=== PATIENT | female | born 1975 | race Caucasian/White ===

== ENCOUNTER → 2018-10-10 | Day surgery (SDC) | payer OTHER ==
[~2018-10-10] MED LIST: ACETAMINOPHEN 1000 MG/100 ML 100 ML IV ONE; ARMOUR THYROID30 MG PO; CLARITIN PO; CRESTOR5 MG PO; DEXAMETHASONE SOD PHOS INJ 4 MG/ML VIAL ONE; DEXILANT60 MG PO; EPHEDRINE SULFATE INJ 50 MG/10 ML SYR ONE; EPINEPHRINE HCL INJ 1 MG/ML AMP ONE; FENTANYL CITRATE/PF 100MCG/2 ML INJ ONE; FISH OIL PO; IRON PO; LAMOTRIGINE200 MG PO; LEVOTHYROXINE50 MCG PO; LIDOCAINE 1% W/EPINEPHRINE 20 ML VIAL ONE; LIDOCAINE HCL 2% LOCAL INJ 5 ML SDV VIAL INJ ONE; MIDAZOLAM HCL 2 MG/2 ML VIAL ONE; MULTIVITAMINS1 EAC8 PO; ONDANSETRON HCL INJ 2 MG/ML VIAL ONE; PROPOFOL IV EMULSION 10 MG/ML 20 ML VIAL ONE; ROCURONIUM BROMIDE 10 MG/ML 5ML VIAL ONE; SEVOFLURANE INHAL SOLN 250 ML PEN BTL ONE; SINGULAIR10 MG PO; VITAMIN B-12 SL; VITAMIN C PO; VITAMIN D PO; ZYRTEC10 MG PO
--- OUTSIDE RECORDS SUMMARY | 2018-10-10 08:18 | XMS REPORT | Clinical Summary ---
Author Author [employer] [facility] [employer] Address Unknown Phone Unavailable Care Team Providers Care Program Proposals Coordinator Name Role Phone Tawanda Paulson MD PCP Allergies Comments Active Allergy Reactions Severity Noted Date Penicillins Anaphylaxis High 01/10/2018 Sulfa (Sulfonamide Anaphylaxis High 01/10/2018 Antibiotics) Medications End Date Status Medication Sig Dispensed Refills Start Date Active thyroid, pork, (ARMOUR 0 THYROID) 30 mg tablet Active loratadine (CLARITIN) 10 0 mg tablet Active rosuvastatin (CRESTOR) 5 0 MG tablet Active cyanocobalamin, vitamin 0 B-12, 1,000 mcg tablet, sublingual Active dexlansoprazole 0 (DEXILANT) 60 mg capsule Active PNV 69-iron 0 [id number] 28-1-50-250 mg capsule Active lamoTRIgine (LaMICtal) 0 200 MG tablet Active linaclotide (LINZESS) 72 0 mcg capsule Active MULTIVITAMIN-FERROUS 0 SULFATE ORAL Active TRIAMCINOLONE ACETONIDE 0 (NASACORT NASL) Active montelukast (SINGULAIR) 0 10 mg tablet Active levothyroxine (SYNTHROID, 0 LEVOXYL) 50 mcg tablet Active ascorbic acid, vitamin C, 0 (vitamin C) 100 MG tablet Active cholecalciferol, vitamin 0 D3, (VITAMIN D3) 5,000 unit tablet Active cetirizine (ZyrTEC) 10 MG 0 tablet 02/09/2018 methocarbamol (ROBAXIN) Take 1 tablet 60 tablet 0 500 MG tabletIndications: (500 mg 8 Chronic bilateral low total) by back pain, with sciatica mouth 2 (two) presence unspecified, times a day Degeneration of lumbar for 30 days. intervertebral disc, Chronic right shoulder pain Active Problems No known active problems Encounters Care Team Description Date Type Specialty Ole Lara MD Neck pain (Primary Dx); DDD (degenerative disc disease), cervical; Strain of neck muscle, initial encounter 03/10/2018 Office Visit Orthopedic Surgery Ole Lara MD Chronic bilateral low back pain, with sciatica presence unspecified (Primary Dx); Degeneration of lumbar intervertebral disc; Chronic right shoulder pain 01/10/2018 Office Visit Orthopedic Surgery after 10/09/2017 Family History Medical History Relation Name Comments Cancer Father Karl mesothelioma Hank Rheumatologic disease Father Karl Mckinney Diabetes Maternal Aunt Tanya Armendariz My dads sister Cancer Mother Nicole 2 types of breast cancers at the same time Hank Diabetes Mother Nicole several of my moms sisters Hank Osteoporosis Mother Nicole Mckinney Diabetes Sister Zeina Chaidez Rheumatologic disease Sister Emily Ball Relation Name Status Comments Father Karl Mckinney Maternal Aunt Tanya Armendariz Mother Nicole Mckinney Sister Zeina Chaidez Sister Emily Ball Social History Date Tobacco Use Types Packs/Day Years Used Never Smoker Alcohol Use Drinks/Week oz/Week Comments No Sex Assigned at Date Recorded Not on file Industry Job Start Date Occupation Not on file Not on file Not on file Travel End Travel History Travel Start No recent travel history available. Last Filed Vital Signs Time Taken Vital Sign Reading 01/10/2018 2:37 PM [employer] Blood Pressure 125/76 - Pulse - - Temperature - - Respiratory Rate - - Oxygen Saturation - - Inhaled Oxygen - Concentration 01/10/2018 2:37 PM [employer] Weight 83.9 kg (185 lb) 01/10/2018 2:37 PM [employer] Height 157.5 cm (5' 2") 01/10/2018 2:37 PM [employer] Body Mass Index 33.84 Plan of Treatment Health Maintenance Due Date Last Done Comments CERVICAL CANCER SCREENING 1994 INFLUENZA VACCINE 06/28/2018 Procedures Comments Procedure Name Priority Date/Time Associated Diagnosis XR CERVICAL SPINE Routine 03/10/2018 Neck pain COMPLETE 10:22 AM CDT XR LUMBAR SPINE COMPLETE Routine 01/10/2018 Chronic bilateral low 4+ VW 2:48 PM [employer] back pain, with sciatica presence unspecified after 10/09/2017 Results * XR Cervical Spine Complete (03/10/2018 10:22 AM CDT) Narrative Performed At [facility], lateral and oblique x-rays of the cervical spine show marked straightening of the normal cervical curve. She also has significant narrowing and spurring of the facet joints between C5 and C6 and C6 and C7.She has severe degenerative arthritis in her cervical spine and cervical strain. Performing Organization Address City/State/Zipcode Phone Number [facility] [address] [place] [address] * XR Lumbar Spine Complete 4+ Vw (01/10/2018 2:48 PM BUSINESS [employer]) Narrative Performed At [facility], lateral and oblique x-rays lumbar spine shows marked narrowing of L5-S1 associated with facet narrowing of L5-S1. Performing Organization Address [facility]/Zipcode Phone Number [facility] [address] [place] [address] after 10/09/2017 Insurance Payer Benefit Subscriber ID Type Phone Address Plan / Group AETNA AETNA PPO xxxxxxxxxx PPO OPEN CHOICE Advance Directives Patient has advance care planning documents on file. For more information, padma dale contact: Evaristo Hurd [address] [place] [address]
--- NOTE | 2018-10-10 12:01 | Operative Report ---
DATE OF PROCEDURE: October 10, 2018 CHIEF COMPLAINT: Chronic sinusitis, nasal obstruction. POSTOPERATIVE DIAGNOSES: 1. Chronic sinusitis. 2. Nasal obstruction. OPERATIONS PERFORMED: 1. Bilateral anterior and posterior ethmoidectomy. 2. Bilateral maxillary sinus antrostomy. 3. Bilateral resection of tissue in maxillary antrum. 4. Bilateral sphenoidectomy. ANESTHESIA: Anesthesiology group. INDICATIONS: This 43-year-old female has history of nasal obstruction. Patient has postnasal drip discharge from her nose. Patient has been treated with about 6 weeks of antibiotics, topical nasal steroid, decongestant with no improvement. On examination the patient was noted to have hypertrophy of the inferior turbinate. A CT scan of paranasal sinuses done before surgery showed the patient has maxillary sinus involvement with polypoid changes in the maxillary sinus, ethmoid sinus involvement and sphenoid sinus involvement. It was decided that endoscopic sinus surgery and other necessary procedures will be beneficial for her. The patient had previous sinus surgery a few years ago. She was doing well until recently. DETAILS OF PROCEDURE: Patient was taken to the operating room and put under general anesthesia, endotracheally intubated. Nose was injected with 1% Xylocaine with 1:100,000 epinephrine for hemostasis. Epinephrine-soaked pledget was inserted in the nose and subsequently removed. The left paranasal sinuses were approached first. The middle turbinate was medialized. Mucosal changes with chronic changes were noted in the ethmoid sinuses. This was worse than what the CAT scan showed. Using a microshaver, anterior and posterior ethmoid sinuses were dissected in systematic fashion. The diseased lining was dissected in a systematic fashion. Care was taken during dissection to ascertain the orbit was not entered. The sphenoid sinus was entered through a natural ostium. Chronic mucosal changes were noted in the sphenoid sinus. This was dissected using the microshaver. Using a 70-degree telescope, the maxillary antrum was examined. Thickened mucosal changes with chronic inflammation were noted in the maxillary sinus. This was dissected using the 120-degree tip of the microshaver. The right paranasal sinuses were approached. The middle turbinate was medialized. Again mucosal changes with chronic inflammation were noted in the ethmoid sinuses in both the anterior and posterior ethmoid sinuses. This was worse than what the CAT scan showed. Using the microshaver, the anterior and posterior ethmoid sinuses were dissected in systematic fashion. Care was taken during dissection to ascertain that the orbit was not entered. Using a 70-degree telescope, the maxillary antrum was examined. Inflamed tissue with thickening of the mucosal lining with chronic inflammation was noted in the maxillary antrum. This was dissected using the 120-degree tip of the microshaver. Using a straight tip of the microshaver, the sphenoid sinus natural ostium was entered. This was enlarged using a microshaver. The chronic inflammation was noted in the sphenoid sinus. This was dissected using a microshaver. The nasopharynx and nasal cavity were reexamined. No other abnormality was noted. Nasopore was inserted in the sinus cavities on either side. This was done to prevent synechiae formation and for hemostasis. The patient tolerated the above procedure well with estimated blood loss about 10 mL. She was given 20 mg of Decadron intraoperatively. Patient was able to be transferred to the recovery room in stable condition. Job#: [id number] TANVI
[2018-10-10 12:05] VITALS: BP 128/85
== END | disposition home or self-care (01) ==
LOC: OR 08:13
PROVIDERS: ATTEND Otolaryngology Otolaryngology/Facial Plastic Surgery
DX: J32.0 Chronic maxillary sinusitis (principal); J32.2 Chronic ethmoidal sinusitis; J34.2 Deviated nasal septum; J32.3 Chronic sphenoidal sinusitis; J34.3 Hypertrophy of nasal turbinates; J34.89 Other specified disorders of nose and nasal sinuses; G43.909 Migraine, unspecified, not intractable, without status migrainosus; F31.9 Bipolar disorder, unspecified; F41.9 Anxiety disorder, unspecified; E66.9 Obesity, unspecified; J30.1 Allergic rhinitis due to pollen; Z77.22 Contact with and (suspected) exposure to environmental tobacco smoke (acute) (chronic); Z88.0 Allergy status to penicillin; Z88.2 Allergy status to sulfonamides; Z91.040 Latex allergy status
CPT/HCPCS: 31259; 31267; 81025; 88305; J0131; J0171; J1100; J2001; J2250; J2405; J2704

== ENCOUNTER → 2024-08-18 | Day surgery (SDC) | payer OTHER ==
[~2024-08-18] MED LIST changes: -ACETAMINOPHEN 1000 MG/100 ML 100 ML IV ONE; -DEXAMETHASONE SOD PHOS INJ 4 MG/ML VIAL ONE; -EPHEDRINE SULFATE INJ 50 MG/10 ML SYR ONE; -EPINEPHRINE HCL INJ 1 MG/ML AMP ONE; -LIDOCAINE 1% W/EPINEPHRINE 20 ML VIAL ONE; +OMEPRAZOLE40 MG PO; -ONDANSETRON HCL INJ 2 MG/ML VIAL ONE; -ROCURONIUM BROMIDE 10 MG/ML 5ML VIAL ONE; -SEVOFLURANE INHAL SOLN 250 ML PEN BTL ONE
[2024-08-18] MEDS: LACTATED RINGER'S 1,000 ML ONE (11:36)
[2024-08-18 12:40] VITALS: BP 118/56; PULSE 83; RESP 16; TEMP 98; O2SAT 95
== END | disposition home or self-care (01) ==
LOC: OR 10:05
PROVIDERS: ATTEND Internal Medicine Gastroenterology
DX: K21.9 Gastro-esophageal reflux disease without esophagitis (principal); K29.50 Unspecified chronic gastritis without bleeding; K57.30 Diverticulosis of large intestine without perforation or abscess without bleeding; K64.4 Residual hemorrhoidal skin tags; K64.1 Second degree hemorrhoids; G47.33 Obstructive sleep apnea (adult) (pediatric); R03.0 Elevated blood-pressure reading, without diagnosis of hypertension; E78.5 Hyperlipidemia, unspecified; E03.9 Hypothyroidism, unspecified; Z88.0 Allergy status to penicillin; Z88.2 Allergy status to sulfonamides; Z91.010 Allergy to peanuts; Z79.1 Long term (current) use of non-steroidal anti-inflammatories (NSAID); Z79.899 Other long term (current) drug therapy; Z68.34 Body mass index [BMI] 34.0-34.9, adult; Z85.3 Personal history of malignant neoplasm of breast
CPT/HCPCS: 43239; 45378; 81025; J2001; J2250; J2704; J3010; J7121